=== PATIENT | male | born 1950 | race Caucasian/White ===

== ENCOUNTER 2022-01-19 20:55 | Inpatient (IN) | payer MEDICARE ==
[~2022-01-19 20:55] MED LIST: Iopamidol 370 76% 100 ML VIAL ONE
[2022-01-19] MEDS ORDERED: Nitroglycerin 50 MG/250 ML BOT 250 ML ONE (21:08)
[2022-01-19 22:35] LABS: #Basophils 0.1 10x3/uL (0.0-0.2); #Eosinphils 0.1 10x3/uL (0.0-0.5); #Monocytes 0.4 10x3/uL (0.0-1.1); #Neutrophils 10.7 10x3/uL (1.5-8.4); %Basophils 0.5 % (0.0-2.0); %Eosinophils 0.8 % (0.0-6.0); %Lymphocytes 10.8 % (18.0-47.0); %Monocytes 2.8 % (0.0-10.0); %Neutrophils 84.7 % (40.0-75.0); Hemoglobin 15.7 g/dL (13.5-17.5); Mean Corpuscular HGB CONC 34.7 g/dL (32.0-36.0); Mean Corpuscular Hemoglobin 30.9 pg (27.0-33.0); Mean Corpuscular Volume 89.2 fl (81.2-95.1); Mean Platelet Volume 11.3 fl (7.4-10.4); Platelet Count 208 10x3/uL (150-450); RBC Distribution Width 12.7 % (11.5-14.5); Red Blood Cell (RBC) Count 5.08 10x6/uL (4.32-5.72); White Blood Cell (WBC) Count 12.6 10x3/uL (3.5-10.5)
[2022-01-19 22:53] LABS: ALT (SGPT) 16 U/L (8-55); AST (SGOT) 11 U/L (5-34); Albumin 3.6 g/dL (3.4-4.8); Alkaline Phosphatase 58 U/L (40-110); Anion Gap 13 mmol/L (10-20); BUN (Urea Nitrogen) 20 mg/dL (8.4-25.7); Bilirubin, Total 0.4 mg/dL (0.2-1.2); Calc. Creatinine Clearance 0 mL/min (70-130); Calcium 8.9 mg/dL (7.8-10.44); Carbon Dioxide 25 mmol/L (23-31); Chloride 100 mmol/L (98-107); Estimated GFR 81; Globulin 2.6 g/dL (2.4-3.5); Magnesium 1.8 mg/dL (1.6-2.6); Potassium 4.2 mmol/L (3.5-5.1); Protein, Total 6.2 g/dL (5.8-8.1); Sodium 134 mmol/L (136-145)
[2022-01-19 22:57] LABS: Glucose 456 mg/dL (80-115)
[2022-01-19] MEDS ORDERED: Furosemide 100 MG/10 ML VIAL ONE (23:16)
[2022-01-19] MEDS ORDERED: Ondansetron PF 4 MG/2 ML Vial IVP PRN (23:33)
[2022-01-19] MEDS ORDERED: Acetaminophen 325 MG TAB PO PRN (23:33)
[2022-01-19] MEDS ORDERED: HYDROcodone/Acetaminophen 5/325 mg Tablet PO PRN (23:33)
[2022-01-19] MEDS ORDERED: Ondansetron ODT 4 MG TAB PO PRN (23:33)
[2022-01-19] MEDS ORDERED: Labetalol HCl 100 MG/20 ML VIAL SLOW IVP PRN (23:42)
[2022-01-20 00:14] LABS: SARS-CoV-2 NAA Rapid Test Not Detected (NotDetected)
[2022-01-20] MEDS ORDERED: Lisinopril 5 MG TAB PO SCH (00:45)
[2022-01-20] MEDS ORDERED: HumaLOG 300 UNITS/3 ML VIAL SC PRN (01:55)
[2022-01-20] MEDS ORDERED: Dextrose 5% in Water 1,000 ML IV PRN (01:55)
[2022-01-20] MEDS ORDERED: Dextrose 50% Abboject 50 ML SYRINGE SLOW IVP PRN (01:55)
[2022-01-20 04:38] LABS: ALT (SGPT) 15 U/L (8-55); AST (SGOT) 8 U/L (5-34); Albumin 3.6 g/dL (3.4-4.8); Alkaline Phosphatase 59 U/L (40-110); Anion Gap 19 mmol/L (10-20); BUN (Urea Nitrogen) 23 mg/dL (8.4-25.7); Bilirubin, Total 0.5 mg/dL (0.2-1.2); Calc. Creatinine Clearance 85 mL/min (70-130); Calcium 8.8 mg/dL (7.8-10.44); Carbon Dioxide 22 mmol/L (23-31); Cardiac Risk 6.2 (Less than 4.5); Chloride 96 mmol/L (98-107); Cholesterol 266 mg/dl (< 200 Desired); Estimated GFR 62; Globulin 2.8 g/dL (2.4-3.5); HDL Cholesterol 43 mg/dL (>60 Neg Risk); LDL Cholesterol, Calculated 201 mg/dL; Magnesium 1.8 mg/dL (1.6-2.6); Potassium 4.6 mmol/L (3.5-5.1); Protein, Total 6.4 g/dL (5.8-8.1); Sodium 132 mmol/L (136-145); Triglycerides 112 mg/dL (Less than 150)
[2022-01-20 04:42] LABS: Glucose 658 mg/dL (80-115)
[2022-01-20 04:53] LABS: Hemoglobin 15.5 g/dL (13.5-17.5); MDiff Complete? YES; Mean Corpuscular HGB CONC 34.4 g/dL (32.0-36.0); Mean Corpuscular Hemoglobin 31.1 pg (27.0-33.0); Mean Corpuscular Volume 90.2 fl (81.2-95.1); Mean Platelet Volume 11.8 fl (7.4-10.4); Platelet Count 194 10x3/uL (150-450); RBC Distribution Width 12.8 % (11.5-14.5); Red Blood Cell (RBC) Count 4.99 10x6/uL (4.32-5.72); White Blood Cell (WBC) Count 7.9 10x3/uL (3.5-10.5)
[2022-01-20] MEDS: Furosemide 40 MG/4 ML VIAL SLOW IVP SCH ×2 (05:58→14:49)
[2022-01-20 06:12] LABS: Band 5 % (5-11); Lymphocytes 4 % (21-51); Neutrophil 91 % (42-75)
[2022-01-20 06:14] LABS: Diff Comment (RBC Morph SCRN) NORMAL; Platelet Morphology Comment Appears Adequate
[2022-01-20] MEDS: FLU VACC QS2022-23(65YR UP)/PF 240 MCG/0.7 ML SYRINGE IM ONE (08:20)
[2022-01-20] MEDS: HumaLOG 300 UNITS/3 ML VIAL SC PRN ×4 (08:21→21:04)
[2022-01-20] MEDS: Clopidogrel Bisulfate 75 MG TAB PO SCH (08:27)
[2022-01-20] MEDS: Enoxaparin Sodium 40 MG/0.4 ML SYRINGE SC SCH (08:27)
[2022-01-20] MEDS: Carvedilol 25 MG TAB PO SCH (08:27)
[2022-01-20] MEDS: hydrALAZINE 25 MG TAB PO SCH ×3 (08:28→21:02)
[2022-01-20] MEDS: Lisinopril 5 MG TAB PO SCH ×2 (08:28→21:02)
[2022-01-20] MEDS: NIFEdipine XL 60 MG TAB PO SCH (08:32)
[2022-01-20] MEDS ORDERED: Carvedilol 3.125 MG TAB PO SCH (09:00)
[2022-01-20] MEDS: HumaLOG 300 UNITS/3 ML VIAL SC SCH ×2 (11:23→17:22)
[2022-01-20 17:21] LABS: Glucose 414 mg/dL (80-115)
[2022-01-20 18:32] LABS: Hemoglobin A1c 12.5 % (4.0-6.0)
[2022-01-20] MEDS: Atorvastatin Calcium 40 MG TAB PO SCH (21:02)
[2022-01-20] MEDS: Lantus 1000 UNITS/10 ML VIAL SC SCH (21:03)
[2022-01-21] MEDS: Furosemide 40 MG/4 ML VIAL SLOW IVP SCH ×2 (06:00→14:22)
[2022-01-21] MEDS: HumaLOG 300 UNITS/3 ML VIAL SC SCH ×3 (06:01→17:37)
[2022-01-21 06:51] VITALS: BMI 29.2
[2022-01-21] MEDS: hydrALAZINE 25 MG TAB PO SCH ×3 (09:12→20:33)
[2022-01-21] MEDS: NIFEdipine XL 60 MG TAB PO SCH (09:12)
[2022-01-21] MEDS: Carvedilol 25 MG TAB PO SCH (09:12)
[2022-01-21] MEDS: Lisinopril 5 MG TAB PO SCH (09:12)
[2022-01-21] MEDS: Clopidogrel Bisulfate 75 MG TAB PO SCH (09:13)
[2022-01-21] MEDS: Enoxaparin Sodium 40 MG/0.4 ML SYRINGE SC SCH (09:13)
[2022-01-21 09:32] LABS: Anion Gap 12 mmol/L (10-20); BUN (Urea Nitrogen) 24 mg/dL (8.4-25.7); Calc. Creatinine Clearance 111 mL/min (70-130); Carbon Dioxide 29 mmol/L (23-31); Chloride 97 mmol/L (98-107); Estimated GFR 88; Glucose 306 mg/dL (80-115); Potassium 3.4 mmol/L (3.5-5.1); Sodium 135 mmol/L (136-145)
[2022-01-21] MEDS ORDERED: Potassium Chloride 20 MEQ TAB PO SCH (11:00)
[2022-01-21] MEDS: HumaLOG 300 UNITS/3 ML VIAL SC PRN ×3 (12:11→20:45)
[2022-01-21] MEDS: FLU VACC QS2022-23(65YR UP)/PF 240 MCG/0.7 ML SYRINGE IM ONE (12:14)
[2022-01-21 12:37] LABS: Hemoglobin A1c 12.3 % (4.0-6.0)
[2022-01-21] MEDS ORDERED: Empagliflozin 25 MG TAB PO SCH (13:00)
[2022-01-21] MEDS ORDERED: Alogliptin 25 MG TAB PO SCH (13:00)
[2022-01-21] MEDS: metFORMIN 500 MG TAB PO SCH (17:37)
[2022-01-21] MEDS: Atorvastatin Calcium 40 MG TAB PO SCH (20:34)
[2022-01-21] MEDS: Lisinopril 10 MG TAB PO SCH (20:34)
[2022-01-21] MEDS: Lantus 1000 UNITS/10 ML VIAL SC SCH (20:34)
[2022-01-22] MEDS: Furosemide 40 MG/4 ML VIAL SLOW IVP SCH (06:12)
[2022-01-22] MEDS: HumaLOG 300 UNITS/3 ML VIAL SC PRN (06:20)
[2022-01-22] MEDS ORDERED: glipiZIDE 10 MG TAB PO SCH (07:30)
[2022-01-22] MEDS: hydrALAZINE 25 MG TAB PO SCH (08:55)
[2022-01-22] MEDS: metFORMIN 500 MG TAB PO SCH (08:55)
[2022-01-22] MEDS: HumaLOG 300 UNITS/3 ML VIAL SC SCH ×2 (08:55→15:42)
[2022-01-22] MEDS: Enoxaparin Sodium 40 MG/0.4 ML SYRINGE SC SCH (08:55)
[2022-01-22] MEDS: NIFEdipine XL 60 MG TAB PO SCH (08:56)
[2022-01-22] MEDS: Carvedilol 25 MG TAB PO SCH (08:56)
[2022-01-22] MEDS: Lisinopril 10 MG TAB PO SCH (08:56)
[2022-01-22] MEDS: Clopidogrel Bisulfate 75 MG TAB PO SCH (08:56)
[2022-01-22] MEDS ORDERED: Empagliflozin 25 MG TAB PO SCH (09:00)
[2022-01-22 11:09] VITALS: BP 157/76; TEMP 97.7
== END 2022-01-22 12:10 | disposition home or self-care (01) | DRG 291 ==
LOC: CSHERS 20:55 → CSHIMCU 01-20 00:08 → CSHTELE 01-20 19:46
PROVIDERS: ADMIT Internal Medicine; ATTEND Family Medicine
DX: I11.0 Hypertensive heart disease with heart failure (principal); J96.01 Acute respiratory failure with hypoxia; I16.1 Hypertensive emergency; I50.9 Heart failure, unspecified; I25.10 Atherosclerotic heart disease of native coronary artery without angina pectoris; E11.9 Type 2 diabetes mellitus without complications; Z96.659 Presence of unspecified artificial knee joint; Z96.669 Presence of unspecified artificial ankle joint; E78.5 Hyperlipidemia, unspecified; F17.210 Nicotine dependence, cigarettes, uncomplicated; Z91.14 Patient's other noncompliance with medication regimen; Z95.5 Presence of coronary angioplasty implant and graft; Z79.899 Other long term (current) drug therapy; Z79.84 Long term (current) use of oral hypoglycemic drugs
CPT/HCPCS: 36415; 36416; 71045; 71275; 80048; 80053; 80061; 83036; 83735; 83880; 84484; 85025; 90471; 90662; 93005; 93306; 94760; 96365; 96366; 96375; 99292; G0008; J1650; J1815; J1940; Q9967; U0002

== ENCOUNTER 2023-01-18 09:06 | Observation (INO) | payer MEDICARE, OTHER ==
[2023-01-18] MEDS ORDERED: Ondansetron PF 4 MG/2 ML Vial ONE ×2 (09:36→18:14)
[2023-01-18] MEDS ORDERED: Morphine 4 MG/ML VIAL ONE (09:36)
[2023-01-18 09:53] LABS: #Basophils 0.1 10x3/uL (0.0-0.2); #Eosinphils 0.1 10x3/uL (0.0-0.5); #Neutrophils 11.5 10x3/uL (1.5-8.4); %Basophils 0.4 % (0.0-2.0); %Eosinophils 0.8 % (0.0-6.0); %Lymphocytes 19.2 % (18.0-47.0); %Monocytes 6.1 % (0.0-10.0); %Neutrophils 73.1 % (40.0-75.0); Hematocrit 48.1 % (38.8-50.0); Hemoglobin 16.5 g/dL (13.5-17.5); Mean Corpuscular HGB CONC 34.3 g/dL (32.0-36.0); Mean Corpuscular Hemoglobin 30.8 pg (27.0-33.0); Mean Corpuscular Volume 89.9 fl (81.2-95.1); Platelet Count 221 10x3/uL (150-450); Red Blood Cell (RBC) Count 5.35 10x6/uL (4.32-5.72); White Blood Cell (WBC) Count 15.7 10x3/uL (3.5-10.5)
[2023-01-18] MEDS ORDERED: Iopamidol 300 61% 100 ML VIAL FS ONE (10:04)
[2023-01-18 10:35] LABS: Troponin I 0.027 ng/mL (< 0.028)
[2023-01-18 10:36] LABS: ALT (SGPT) 25 U/L (8-55); AST (SGOT) 17 U/L (5-34); Albumin 4.3 g/dL (3.4-4.8); Alkaline Phosphatase 43 U/L (40-110); Anion Gap 17 mmol/L (10-20); BUN (Urea Nitrogen) 24 mg/dL (8.4-25.7); Bilirubin, Total 0.7 mg/dL (0.2-1.2); Calc. Creatinine Clearance 0 mL/min (70-130); Calcium 9.6 mg/dL (7.8-10.44); Carbon Dioxide 22 mmol/L (23-31); Chloride 102 mmol/L (98-107); Estimated GFR 86; Globulin 2.8 g/dL (2.4-3.5); Glucose 143 mg/dL (80-115); Lipase 22 U/L (8-78); Potassium 4.3 mmol/L (3.5-5.1); Protein, Total 7.1 g/dL (5.8-8.1); Sodium 137 mmol/L (136-145)
[2023-01-18 15:55] LABS: PTT 27.9 sec (22.0-33.0); Prothrombin Time 10.8 sec (9.5-12.1)
[2023-01-18] MEDS ORDERED: fentaNYL 50 mcg/mL 1 mL Vial ONE (16:20)
[2023-01-18] MEDS ORDERED: PROPOFOL 20 ML ONE (16:20)
[2023-01-18] MEDS ORDERED: Lidocaine 2% PF 5 ML VIAL ONE (16:22)
[2023-01-18] MEDS ORDERED: Rocuronium Bromide 10 MG/ML (10ML VIAL) ONE (16:24)
[2023-01-18] MEDS ORDERED: EPINEPHrine 1 MG/ML VIAL ONE (16:45)
[2023-01-18] MEDS ORDERED: Bupivacaine PF 0.5% 30 ML VIAL ONE (16:45)
[2023-01-18] MEDS ORDERED: CEFAZOLIN 1 GM VIAL ONE (17:26)
[2023-01-18] MEDS ORDERED: ePHEDrine Sulfate 50 MG/10 ML VIAL ONE (17:28)
[2023-01-18] MEDS ORDERED: PHENYLEPHRINE-NS 100 MCG/ML 10 ML SYRINGE ONE (17:30)
[2023-01-18] MEDS ORDERED: Glycopyrrolate 0.2 MG/ML 5 ML SYRINGE ONE (18:39)
[2023-01-18] MEDS ORDERED: traMADol HCl 50 MG TAB PO PRN (19:00)
[2023-01-18] MEDS ORDERED: Dextrose 5% in Water 1,000 ML IV PRN (19:02)
[2023-01-18] MEDS ORDERED: Insulin Regular 300 UNITS/3 ML VIAL SC PRN (19:02)
[2023-01-18] MEDS ORDERED: Glucagon 1 MG/ML KIT IM PRN (19:02)
[2023-01-18] MEDS ORDERED: Dextrose 50% Abboject 50 ML SYRINGE SLOW IVP PRN (19:02)
[2023-01-18] MEDS ORDERED: Atorvastatin Calcium 40 MG TAB PO SCH (21:00)
[2023-01-18] MEDS: Acetaminophen 500 MG TAB PO SCH (22:32)
[2023-01-18] MEDS: Carvedilol 25 MG TAB PO SCH (22:34)
[2023-01-18] MEDS: Lisinopril 10 MG TAB PO SCH (22:34)
[2023-01-19 01:13] VITALS: BMI 31.2
[2023-01-19] MEDS: Acetaminophen 500 MG TAB PO SCH ×2 (04:31→08:42)
[2023-01-19] MEDS: Benzocaine/Menthol 1 LOZ LOZ PO PRN ×2 (05:28→08:42)
[2023-01-19] MEDS: Carvedilol 25 MG TAB PO SCH (08:42)
[2023-01-19] MEDS: Lisinopril 10 MG TAB PO SCH (08:42)
[2023-01-19] MEDS ORDERED: FLU VACC QS2023(65UP)/MF59C/PF 60 MCG/0.5 ML SYRINGE IM ONE (09:00)
[2023-01-19] MEDS ORDERED: Furosemide 40 MG TAB PO SCH (09:00)
[2023-01-19 09:29] VITALS: BP 115/57; TEMP 98
[2023-01-19] MEDS ORDERED: Ibuprofen 400 MG TAB PO PRN (09:56)
== END 2023-01-19 10:44 | disposition home or self-care (01) ==
LOC: CSHERS 09:06 → CSHTELE 15:59
PROVIDERS: ADMIT Surgery; ATTEND Surgery
PROC: 0FT44ZZ Resection of Gallbladder, Percutaneous Endoscopic Approach (ICD-10-PCS; principal; 2023-01-18)
DX: K80.12 Calculus of gallbladder with acute and chronic cholecystitis without obstruction (principal); I11.0 Hypertensive heart disease with heart failure; I50.9 Heart failure, unspecified; E78.5 Hyperlipidemia, unspecified; E11.9 Type 2 diabetes mellitus without complications; I25.10 Atherosclerotic heart disease of native coronary artery without angina pectoris; I25.2 Old myocardial infarction; Z95.5 Presence of coronary angioplasty implant and graft; Z79.84 Long term (current) use of oral hypoglycemic drugs; Z79.02 Long term (current) use of antithrombotics/antiplatelets; Z79.899 Other long term (current) drug therapy; Z98.890 Other specified postprocedural states
CPT/HCPCS: 36430; 47562; 74177; 76705; 80053; 82962 ×2; 83690; 83880; 84484; 85025; 85610; 85730; 86850; 86900; 86901; C1889; G0378; J0171; J3010; P9035; 36416; 88304; 96374; 96375; J0690; J2001; J2270; J2405; J2704; Q9967; S0020

== ENCOUNTER 2024-11-13 13:42 | Outpatient (CLI) | payer MEDICARE, OTHER | END 2024-11-13 13:43 | disposition home or self-care (01) | LOC: CSHULT 13:42 | PROVIDERS: ATTEND Family Medicine | DX: E04.2 Nontoxic multinodular goiter (principal) | CPT/HCPCS: 76536 ==

== ENCOUNTER → 2024-11-26 | Day surgery (SDC) | payer MEDICARE, OTHER ==
[~2024-11-26] MED LIST changes: -Iopamidol 370 76% 100 ML VIAL ONE; +Sodium Bicarbonate 2.5 MEQ/5 ML SDV ONE
[2024-11-26 13:15] VITALS: BP 130/64; TEMP 97.2
== END ==
LOC: CSHULT 12:18
PROVIDERS: ATTEND Family Medicine
PROC: 0GBH3ZX Excision of Right Thyroid Gland Lobe, Percutaneous Approach, Diagnostic (ICD-10-PCS; principal; 2024-11-26)
DX: E04.2 Nontoxic multinodular goiter (principal); Z87.891 Personal history of nicotine dependence
CPT/HCPCS: 10005; Q0162; 88173